=== PATIENT | female | born 1980 | race Caucasian/White ===

== ENCOUNTER → 2018-07-21 08:09 | Day surgery (SDC) | payer OTHER ==
[~2018-07-21 08:09] MED LIST: Buffered Lidocaine 1% SYRIN* 1 ML/SYRINGE INTRADERM ONE; Bupivacaine 0.5%* 50 ML VIAL ONE; Dexamethasone IV* 4 MG/ML 1 ML (4 MG) IV SLOW PU ONE; Dexamethasone IV* 4 MG/ML 1 ML (4 MG) ONE; DiMENhydriNATE IV* 50 MG/ML VIAL IV PUSH PRN; Famotidine IV* 10 MG/ML 2 ML (20 mg) IV ONE; Famotidine IV* 10 MG/ML 2 ML (20 mg) ONE; HYDROcodone/ACETAMIN 5-325 MG* 1 TAB PO PRN; KETAMINE HCL* 50 MG/ML 10 ML VIAL ONE; Ketorolac INJ* 30 MG/ML 1 ML VIAL ONE; Lactated Ringers 1000 ML Bag* 1,000 ML IV SCH; Lidocaine 2% PF * 5 ML VIAL ONE; Metoprolol Tartrate IV* 1 MG/ML 5 ML VIAL ONE; Midazolam* 1 MG/ML 5 ML VIAL (5 MG) ONE; Naloxone* 0.4 MG/ML 1 ML VIAL IV PRN; Ondansetron INJ* 2 MG/ML VIAL ONE; Propofol* 10 MG/ML 20 ML BTL ONE; ceFAZolin 2 GM in NS PREMIX(*) 2 GM/100 ML BAG IVPB ONE; fentaNYL* 50 MCG/ML 2 ML VIAL (100 MCG VIAL) ONE; oxyCODONE/Acetamin 5/325 MG* TAB ONE; oxyCODONE/Acetamin 5/325 MG* TAB PO PRN
[2018-07-21] MEDS: fentaNYL* 50 MCG/ML 2 ML VIAL (100 MCG VIAL) IV PRN ×2 (13:23→13:28)
[2018-07-21 14:35] VITALS: BP 119/68
--- NOTE | 2018-07-21 21:56 | OP ---
DATE OF OPERATION: 07/21/18 - [facility] DATE OF : 80 ATTENDING SURGEON: Darryn Caraballo MD. NUCLEAR EQUIPMENT SALES ENGINEER: Mitzi Jimenez PA-C. PRE-OP DIAGNOSIS: [id number]-Enffb-Iwzid with left foot deformity and weakness. POST-OP DIAGNOSIS: [id number]-Rtsuf-Syzzc with left foot deformity and weakness. OPERATIVE PROCEDURES: Left calcaneal osteotomy, left first metatarsal osteotomy , peroneus brevis longus tenodesis, and transfer of posterior tibial to the anterior tibial tendon. DESCRIPTION OF PROCEDURE: The patient was taken to the operating room, where a lateral incision was made over the course of the peroneal tendons. We isolated both of the tendons, the peroneus longus appearing to be rather scarred and torn through its course at this level. We debrided and cleaned up the peroneus longus and a fwyl-jf-uhly tenodesis was performed at the peroneus brevis using interrupted 3-0 Monocryl sutures. I also freed up adhesions at the peroneus longus distally along the cuboid notch. By pulling the tendon repair dorsally, we were able to transect the calcaneus with a sagittal saw right through the floor of the peroneus longus tendon. Using a lamina rug layer and some osteotomes, we were able to open this osteotomy widely and translate it laterally about 12 mm. This was then pinned with a 60 mm cannulated screw from the heel up to the anterior portion of the calcaneus. The tendons seemed to lie in a neutral position laterally. We irrigated thoroughly closing the subcu in layers with 2-0 Vicryl and brook for the skin. Medially, a longitudinal incision was made over the first metatarsal proximally. Tendons and neurovascular structures were well protected when we performed the osteotomy, which was a dorsal closing wedge at the base of the first metatarsal. This was fixed with a small T-shaped 2.7 mm fragment screw off of the Arthrex kit. Good fixation and alignment was obtained after dorsiflexing the first ray through the osteotomy. Proximally, we made a 6 cm incision behind the malleolus and down toward the navicular. We reflected the posterior tibial away from the medial border of the navicular trying to maintain the length. We dissected proximally and over the anterior retinaculum , where we were hoping to pass the tendon deep to the retinaculum and insert on the navicular. In preparation for this, we sized the tendon at 6.5 mm and drilled a hole dorsally through the navicular. We exited through a blind hole laterally. We passed the sutures holding the posterior tibial tendon into the blind hole, placed 2 tenodesis screws to try to hold it, but neither of these was able to hold as the bone itself was shallow and the tendon had significant tension. So, instead, we performed a tenodesis into the anterior tibial tendon. We passed the posterior tibial deep and lateral to the tendon to try to lateralize the forces. This was sewn side to side into the anterior tibial with 2-0 Monocryl sutures. All wounds were then irrigated thoroughly and closed in layers with brook for the skin and a compression dressing plaster splint applied. [id number]/[facility] #: [id number] [place]
== END | disposition home or self-care (01) ==
LOC: OR 08:09
PROVIDERS: ATTEND Orthopaedic Surgery
DX: G60.0 Hereditary motor and sensory neuropathy (principal); M21.6X2 Other acquired deformities of left foot; Z87.891 Personal history of nicotine dependence; F41.9 Anxiety disorder, unspecified
CPT/HCPCS: 76000; A9270-GY; C1713; J0690; J1100; J1885; J2250; J2405; J2704; J3010; J3490

== ENCOUNTER 2019-02-09 05:41 | Day surgery (SDC) | payer OTHER ==
[~2019-02-09 05:41] MED LIST changes: -Bupivacaine 0.5%* 50 ML VIAL ONE; -Dexamethasone IV* 4 MG/ML 1 ML (4 MG) IV SLOW PU ONE; -Dexamethasone IV* 4 MG/ML 1 ML (4 MG) ONE; -DiMENhydriNATE IV* 50 MG/ML VIAL IV PUSH PRN; -Famotidine IV* 10 MG/ML 2 ML (20 mg) IV ONE; -Famotidine IV* 10 MG/ML 2 ML (20 mg) ONE; -HYDROcodone/ACETAMIN 5-325 MG* 1 TAB PO PRN; -KETAMINE HCL* 50 MG/ML 10 ML VIAL ONE; -Ketorolac INJ* 30 MG/ML 1 ML VIAL ONE; -Lactated Ringers 1000 ML Bag* 1,000 ML IV SCH; -Lidocaine 2% PF * 5 ML VIAL ONE; -Metoprolol Tartrate IV* 1 MG/ML 5 ML VIAL ONE; -Midazolam* 1 MG/ML 5 ML VIAL (5 MG) ONE; -Naloxone* 0.4 MG/ML 1 ML VIAL IV PRN; -Ondansetron INJ* 2 MG/ML VIAL ONE; -Propofol* 10 MG/ML 20 ML BTL ONE; -ceFAZolin 2 GM in NS PREMIX(*) 2 GM/100 ML BAG IVPB ONE; -fentaNYL* 50 MCG/ML 2 ML VIAL (100 MCG VIAL) ONE; -oxyCODONE/Acetamin 5/325 MG* TAB ONE; -oxyCODONE/Acetamin 5/325 MG* TAB PO PRN
[2019-02-09] MEDS ORDERED: ceFAZolin 2 GM in NS PREMIX(*) 2 GM/100 ML BAG IVPB ONE (06:00)
[2019-02-09] MEDS ORDERED: Lactated Ringers 1000 ML Bag* 1,000 ML IV SCH (06:00)
[2019-02-09] MEDS ORDERED: Famotidine IV* 10 MG/ML 2 ML (20 mg) IV ONE (06:00)
[2019-02-09] MEDS ORDERED: Famotidine IV* 10 MG/ML 2 ML (20 mg) ONE (06:20)
[2019-02-09] MEDS ORDERED: Bupivacaine 0.5%* 50 ML MDV VIAL ONE (07:11)
[2019-02-09] MEDS ORDERED: Lidocaine 2% PF* 10 ML AMP ONE (07:12)
[2019-02-09] MEDS ORDERED: Midazolam* 1 MG/ML 5 ML VIAL (5 MG) ONE (07:35)
[2019-02-09] MEDS ORDERED: Naloxone* 0.4 MG/ML 1 ML VIAL IV PRN (07:38)
[2019-02-09] MEDS ORDERED: DiMENhydriNATE IV* 50 MG/ML VIAL IV PUSH PRN (07:38)
[2019-02-09] MEDS ORDERED: fentaNYL* 50 MCG/ML 2 ML VIAL (100 MCG VIAL) ONE ×2 (07:53→08:21)
[2019-02-09] MEDS ORDERED: KETAMINE HCL* 50 MG/ML 10 ML VIAL ONE (08:22)
[2019-02-09] MEDS ORDERED: Propofol* 10 MG/ML 20 ML BTL ONE ×2 (08:44→10:01)
[2019-02-09] MEDS ORDERED: EPHEDrine (Pressors)* 50 MG/ML VIAL ONE (08:44)
[2019-02-09] MEDS ORDERED: Dexamethasone IV* 4 MG/ML 1 ML (4 MG) ONE (08:44)
[2019-02-09] MEDS ORDERED: Ketorolac INJ* 30 MG/ML 1 ML VIAL ONE (08:44)
[2019-02-09] MEDS ORDERED: DiMENhydriNATE IV* 50 MG/ML VIAL ONE (08:44)
[2019-02-09] MEDS ORDERED: Ondansetron INJ* 2 MG/ML VIAL ONE (08:44)
[2019-02-09] MEDS ORDERED: Lidocaine 2% PF * 5 ML VIAL ONE (08:45)
[2019-02-09] MEDS ORDERED: HYDROmorphone INJ1* 1 MG/ML SYRINGE ONE ×2 (09:32→10:24)
[2019-02-09] MEDS ORDERED: oxyCODONE/Acetamin 5/325 MG* TAB ONE ×2 (10:24→10:54)
[2019-02-09] MEDS: HYDROmorphone INJ1* 1 MG/ML SYRINGE IV PRN ×4 (10:35→11:04)
[2019-02-09] MEDS: oxyCODONE/Acetamin 5/325 MG* TAB PO PRN ×2 (10:37→10:56)
[2019-02-09 12:45] VITALS: BP 140/100
--- NOTE | 2019-02-09 22:18 | OP ---
DATE OF OPERATION: 02/09/19 - [facility] DATE OF : 80 ATTENDING SURGEON: Darryn Caraballo MD ASSISTED BY: Fabio Romeo MD and REGINA Lebron PRE-OP DIAGNOSIS: Pauowyt-Nwywr-Zoyxc with recurrent deformity, left hindfoot. POST-OP DIAGNOSIS: Jbentcd-Kjyny-Hvhjg with recurrent deformity, left hindfoot. OPERATIVE PROCEDURE: Left Usman, hardware removal left heel, calcaneal osteotomy, ATFL repair with allograft, anterior tibial transfer. DESCRIPTION OF PROCEDURE: The patient was taken to the operating room, lateral positioning used. We made a 3-cm incision proximally in the mid calf, incised down directly to the lateral fascia of the gastrocnemius. Sural nerve protected with an army navy. We transected the fascia with a curved Vera scissor. We then irrigated this wound and closed with 2-0 Monocryl and brook for the skin. We then opened up the 1-cm incision at the posterior heel. We cannulated the retained screw in the heel with a guide pin and then used the cannulated screwdriver to remove the heel screw. We then opened up the previous sinus tarsi incision, extending it proximally, so that we will be able to repair the ankle ligament as well. Peroneal tendons were dissected out from the retinaculum and subluxed anteriorly. This gave clear visualization of the previous osteotomy site, which was recut with the sagittal saw and a straight osteotome. We used paired osteotomes with a bone tamp to open the medial cortex. I translated the calcaneus another centimeter laterally and pinned this with a 55 mm cannulated screw from the heel up to the anterior process. The heel wound was then closed with interrupted 2-0 Monocryl and 2-0 Prolene. Proximally, we dissected out the ATFL ligament, which was essentially not existent. We did see a remnant of the anterior tib-fib ligament. The semitendinosus allograft was then examined and noted to be quite sturdy, so we did not double it up, it was about 6 mm in diameter. We created a blind hole at the lateral talar neck right below the anterior portion of the articular cartilage. On a Khoa needle, we passed a free end of the tendon down into the blind hole and anchored this with a 5.5 x 8 mm Bio-Tenodesis screw. We then created a small groove along the distal lateral fibula to accommodate the free end of the allograft. A 2.4 mm mini frag plate was used to anchor the graft along the lateral fibula, but it was not tightened down yet. We then opened up medially in a 5 cm longitudinal incision from the anterior retinaculum down to the medial first cuneiform. The anterior tibialis combined graft for the posterior tibia was mobilized off the medial midfoot and this free flap was transferred laterally underneath the dorsal flap to the lateral wound. In that area, we whipstitched a 0 Vicryl suture. We created a power jamey opening by decorticating the junction between the third cuneiform and the cuboid. We passed the tendon down into this decorticated area, pulling on a Khoa needle through the plantar aspect of the foot. We then anchored the tendon in this new position with a spanning plate also 2.4 mm from the third cuneiform over to the cuboid. We tied the sidewall of the tendon down to the plate as well. We then irrigated the medial wound closing with 2-0 Monocryl and brook. The lateral wound, we then tightened the ATFL allograft under the plate and then placed the remaining screws along the lateral fibula. The free end of the allograft, which stuck out posteriorly below the plate was used to imbricate the retinaculum, which we repaired with Clayton-Willam type sutures to all the peroneals behind the fibula. X-rays were then performed and we irrigated thoroughly laterally closing with 2-0 Monocryl brook for the skin and a compression dressing and plaster splint applied. [id number]/[facility] #: [id number] [facility]
== END 2019-02-09 12:48 | disposition home or self-care (01) ==
LOC: OR 05:41
PROVIDERS: ATTEND Orthopaedic Surgery
DX: M21.6X2 Other acquired deformities of left foot (principal); G60.0 Hereditary motor and sensory neuropathy; Z87.891 Personal history of nicotine dependence; F41.8 Other specified anxiety disorders
CPT/HCPCS: 76000; 81025; 88300; A9270-GY; C1713; J0690; J1100; J1170; J1240; J1885; J2001; J2250; J2405; J2704; J3010; J3490; L8699